=== PATIENT | female | born 1960 | race Native Hawaiian/Other Pacific Islander ===

== ENCOUNTER 2022-05-11 19:59 | Emergency (ER) | payer OTHER ==
[~2022-05-11] VITALS: Ht 160 cm; Wt 68.2 kg
[2022-05-11 20:59] LABS: PLATELET COUNT 232 K/uL (152-353)
[2022-05-11 21:12] LABS: POTASSIUM 3.8 mmol/L (3.6-5.2)
[2022-05-11 21:59] VITALS: BP 140/88; TEMP 98.5
[2022-05-12] MEDS ORDERED: CLON0.5T36 PO (09:09)
[2022-05-12] MEDS ORDERED: DQZATE100 MG PO (09:10)
[2022-05-12] MEDS ORDERED: ESCI20TA PO (09:10)
[2022-05-12] MEDS ORDERED: FURO20TA67 PO (09:14)
[2022-05-12] MEDS ORDERED: KEPPRA750 MG PO (09:15)
[2022-05-12] MEDS ORDERED: POLYETHYLE17 GM/SCO1 PO (09:16)
[2022-05-12] MEDS ORDERED: QUETIAPINE200 MG PO (09:22)
[2022-05-12] MEDS ORDERED: KLOR-CON M2020 MEQ PO (09:22)
[2022-05-12] MEDS ORDERED: ROSU10TA PO (09:23)
[2022-05-12] MEDS ORDERED: QUETIAPINE50 MG PO (09:23)
[2022-05-12] MEDS ORDERED: DIVALPROEX250 M1 PO (09:24)
[2022-05-12] MEDS ORDERED: LACO200T PO (09:25)
[2022-05-12] MEDS ORDERED: LORA2INJ INJ (09:26)
[2022-05-12] MEDS ORDERED: HYDR5TAB9 PO (09:27)
== END 2022-05-11 21:59 | disposition still patient (30) ==
LOC: ED 19:59
PROVIDERS: Emergency Medicine Emergency Medical Services
DX: F03.911 Unspecified dementia, unspecified severity, with agitation (principal); Z11.52 Encounter for screening for COVID-19; Z04.6 Encounter for general psychiatric examination, requested by authority
CPT/HCPCS: 36415; 80053; 81002; 85027; 87635; 93005; 99283; U0003